=== PATIENT | male | born 1995 | race Caucasian/White ===

== ENCOUNTER 2023-09-14 10:28 | Emergency (ER) | payer OTHER ==
[~2023-09-14] VITALS: Ht 177.8 cm; Wt 79.8 kg
[2023-09-14] MEDS ORDERED: PARACETAMOL (11:17)
[2023-09-14] MEDS ORDERED: [UNRECOGNIZED DRUG - OTHER] (11:17)
[2023-09-14 13:00] LABS: ERYTHROCYTE SEDIMENTATION RATE 1 mm/hr
[2023-09-14 13:03] LABS: HEMOGLOBIN 15.2 g/dL (13-16.00); MEAN CELL VOLUME 85.3 fL (80.0-100.00); MEAN CORPUSCULAR HEMOGLOBIN 30.1 pg (27.00-32.0); MEAN CORPUSCULAR HGB CONC 35.3 g/dl (32.0-36.0); PLATELET COUNT 348 K/uL (150-450); RED BLOOD COUNT 5.04 M/uL (4.00-6.00); RED CELL DISTRIBUTION WIDTH 12.8 % (11.5-14.5)
[2023-09-14] MEDS ORDERED: DICLOFENAC SODI75 MG PO (13:58)
== END 2023-09-14 14:47 | disposition home or self-care (01) ==
LOC: ER 10:29
PROVIDERS: General Practice
DX: M79.675 Pain in left toe(s) (principal)